=== PATIENT | female | born 1985 | race Caucasian/White ===

== ENCOUNTER 2023-05-15 08:50 | Inpatient (IN) | payer OTHER ==
[2023-05-15] MEDS ORDERED: OXYTOCIN 30 UNITS in 0.9% NS 30 UNIT/500 ML INFUS.BAG IVPB SCH (10:00)
[2023-05-15] MEDS: ELECTROLYTE-148 SOLN 1,000 ML IV SCH (10:10)
[2023-05-15] MEDS ORDERED: AMPICILLIN SODIUM 2 GM VIAL ONE (10:17)
[2023-05-15] MEDS ORDERED: AMPICILLIN - 2 GM in SODIUM CHLORIDE 100 ML IVPB ONE (10:30)
[2023-05-15 10:48] LABS: BASO % 0.3 % (0-2.0); EOS % 1.2 % (0-4.5); HEMATOCRIT 35.9 % (32.4-45.2); HEMOGLOBIN 12.1 GM/dL (10.7-15.3); LYMPH % 17.8 % (8-40); MCH 29.3 pg (25.7-33.7); MCHC 33.8 g/dl (32.0-36.0); MEAN CELL VOLUME 86.7 fl (80-96); MEAN PLT VOLUME 10.1 fl (7.5-11.1); MONO % 4.9 % (3.8-10.2); NEUT % 75.8 % (42.8-82.8); PLATELET COUNT 182 10^3/uL (134-434); RBC 4.14 M/mm3 (3.60-5.2); RDW 13.7 % (11.6-15.6); WHITE BLOOD COUNT 8.4 K/mm3 (4.0-10.0)
[2023-05-15 10:50] LABS: INR 0.93 (0.83-1.09); PROTHROMBIN TIME (PATIENT) 10.8 SEC (9.7-13.0)
[2023-05-15 10:53] LABS: ACTIVATED PTT 25.5 SECONDS (25.2-36.5)
[2023-05-15 11:08] LABS: POTASSIUM 4.4 mmol/L (3.5-5.1)
[2023-05-15 11:10] LABS: CALCIUM 9.5 mg/dL (8.5-10.1)
[2023-05-15 11:13] LABS: BLOOD UREA NITROGEN 9.8 mg/dL (7-18); CREATININE 0.7 mg/dL (0.55-1.3)
[2023-05-15 11:41] VITALS: BMI 27.3
[2023-05-15] MEDS ORDERED: BUPIVACAINE HCL/PF 0.25% (2.5MG/ML) 10 ML VIAL ONE (13:38)
[2023-05-15] MEDS ORDERED: FENTANYL/BUPIVACAINE/NS/PF - PCEA - 50 ML DISP.SYRIN EP ONE (13:38)
[2023-05-15] MEDS ORDERED: LIDO 2%/EPI 1:200000 PRESRVFRE (20 ML SDVIAL) ONE (13:39)
[2023-05-15] MEDS: FENTANYL/BUPIVACAINE/NS/PF - PCEA - 50 ML DISP.SYRIN EP SCH (14:00)
[2023-05-15] MEDS ORDERED: NALOXONE HCL 0.4 MG/ML VIAL IVPUSH PRN (14:06)
[2023-05-15] MEDS ORDERED: AMPICILLIN SODIUM 1 GM VIAL ONE (14:21)
[2023-05-15] MEDS ORDERED: AMPICILLIN - 1 GM in SODIUM CHLORIDE 100 ML IVPB ONE (14:30)
[2023-05-15] MEDS ORDERED: OXYTOCIN 20 UNITS in 0.9% NS 20 UNIT/1,000 ML INFUS.BAG IV ONE (15:37)
[2023-05-15] MEDS ORDERED: LIDOCAINE HCL 1% PRESERVATIVE FREE - 30ML VIAL ONE (15:37)
[2023-05-15] MEDS ORDERED: BENZOCAINE 28 GM HEMORRHOIDAL OINTMENT TP PRN (16:21)
[2023-05-15] MEDS ORDERED: METHYLERGONOVINE MALEATE 0.2 MG/1 ML AMP IM PRN (16:21)
[2023-05-15] MEDS ORDERED: WITCH HAZEL 50% (TUCKS) 40 PAD/JAR PAD TP PRN (16:21)
[2023-05-15] MEDS ORDERED: ACETAMINOPHEN 325 MG TABLET (FP) PO PRN (16:21)
[2023-05-15] MEDS ORDERED: BENZOCAINE 20% 57 GM BOTTLE TP PRN (16:21)
[2023-05-15] MEDS ORDERED: BISACODYL 10 MG SUPP.RECT RC PRN (16:21)
[2023-05-15] MEDS ORDERED: OXYTOCIN 20 UNITS in 0.9% NS 20 UNIT/1,000 ML INFUS.BAG IV SCH (16:30)
[2023-05-15 16:46] LABS: CORD BASE EXCESS -2.3 mmol/L (0-2); CORD HCO3 24.4 mmHg (20-29); CORD PCO2 48.7 mmHg (30-78); CORD pH 7.317 (7.14-7.44)
[2023-05-15 16:51] LABS: CORD BASE EXCESS -3.1 mmol/L (0-2); CORD HCO3 27.5 mmHg (20-29); CORD PCO2 75.1 mmHg (30-78); CORD pH 7.182 (7.14-7.44)
[2023-05-15] MEDS: IBUPROFEN 600 MG TABLET (FP) PO PRN (20:29)
[2023-05-16 08:38] LABS: BASO % 0.3 % (0-2.0); EOS % 1.6 % (0-4.5); HEMATOCRIT 36.6 % (32.4-45.2); HEMOGLOBIN 12.1 GM/dL (10.7-15.3); LYMPH % 15.3 % (8-40); MCHC 33.2 g/dl (32.0-36.0); MEAN CELL VOLUME 87.5 fl (80-96); MONO % 5.8 % (3.8-10.2); PLATELET COUNT 164 10^3/uL (134-434); RBC 4.18 M/mm3 (3.60-5.2); RDW 14.1 % (11.6-15.6); WHITE BLOOD COUNT 12.6 K/mm3 (4.0-10.0)
[2023-05-16] MEDS ORDERED: FLU VACCINE (FLULAVAL) PF 60 MCG/0.5 ML SYRINGE 2023-2024 IM ONE (09:00)
[2023-05-16 14:49] VITALS: RESP 18
[2023-05-16] MEDS ORDERED: SENNOSIDES/DOCUSATE COMBO (SENNA PLUS) TABLET (UD) PO PRN (22:00)
[2023-05-17] MEDS: ELECTROLYTE-148 SOLN 1,000 ML IV SCH (00:14)
[2023-05-17] MEDS: FENTANYL/BUPIVACAINE/NS/PF - PCEA - 50 ML DISP.SYRIN EP SCH (00:14)
[2023-05-17] MEDS: IBUPROFEN 600 MG TABLET (FP) PO PRN (10:12)
[2023-05-17 10:41] VITALS: BP 118/65; PULSE 67; TEMP 98.6
== END 2023-05-17 13:10 | disposition home or self-care (01) | DRG 807 ==
LOC: JLDR 08:50 → J3W 17:45
PROVIDERS: ADMIT Obstetrics & Gynecology; ATTEND Obstetrics & Gynecology
PROC: 10E0XZZ Delivery of Products of Conception, External Approach (ICD-10-PCS; principal; 2023-05-15)
PROC: 0HQ9XZZ Repair Perineum Skin, External Approach (ICD-10-PCS; 2023-05-15)
PROC: 0W8NXZZ Division of Female Perineum, External Approach (ICD-10-PCS; 2023-05-15)
DX: O70.0 First degree perineal laceration during delivery (principal); Z37.0 Single live birth; O99.820 Streptococcus B carrier state complicating pregnancy; Z3A.40 40 weeks gestation of pregnancy
CPT/HCPCS: 36415; 36600; 80048; 82803; 85025; 85610; 85730; 86780; 86850; 86900; 86901; 90686; G0008